=== PATIENT | female | born 1990 | race Two or more races ===

== ENCOUNTER 2016-03-27 22:47 | Emergency (ER) | payer OTHER ==
[~2016-03-27] VITALS: Ht 149.9 cm; Wt 60.8 kg
[2016-03-27] MEDS ORDERED: NKM (23:05)
[2016-03-27 23:32] VITALS: BP 100/66
[2016-03-27] MEDS ORDERED: Ketorolac 30mg Inj IV ONE (23:45)
[2016-03-27] MEDS ORDERED: Acetaminophen 500mg (ES) tab ORAL ONE (23:45)
[2016-03-27 23:56] LABS: APPEARANCE,URINE CLEAR; KETONES,URINE 2+ (NEGATIVE); LEUKOCYTE ESTERASE ,URINE 3+ (NEGATIVE); NITRITE,URINE NEGATIVE (NEGATIVE); PH,URINE 6 (4.5-8.0); PROTEIN,URINE NEGATIVE (NEGATIVE); UROBILINOGEN,URINE NORMAL MG/DL (0.0-1.0)
[2016-03-28 00:05] LABS: MEAN CORPUSCULAR HEMOGLOBIN 31.8 PG (27.0-31.0); MEAN CORPUSCULAR HGB CONC 34.1 G/DL (32.0-36.0); MEAN CORPUSCULAR VOLUME 93 FL (80-99); MEAN PLATELET VOLUME 6.3 FL (6.5-10.1); PLATELET COUNT 250 K/UL (150-450); RED BLOOD COUNT 4.06 M/UL (4.20-5.40); RED CELL DISTRIBUTION WIDTH 11.4 % (11.6-14.8); WHITE BLOOD COUNT 7.4 K/UL (4.8-10.8)
[2016-03-28 00:18] LABS: ANION GAP 19 (5-15); CALCIUM 8.6 mg/dL (8.6-10.2); CARBON DIOXIDE 22 mEQ/L (20-30); CHLORIDE 95 mEQ/L (98-107); CREATININE 0.8 mg/dL (0.5-0.9); GLOMERULAR FILTRATION RATE > 60 mL/min (>60); HEMOLYSIS 16; POTASSIUM 3.7 mEQ/L (3.4-4.9); SODIUM 136 mEQ/L (135-145)
[2016-03-28 00:27] LABS: BACTERIA,URINE FEW /HPF; SQUAMOUS EPITHELIAL CELL,UR MANY /LPF (NONE/OCC)
[2016-03-28 00:42] VITALS: BP 98/50
[2016-03-28] MEDS ORDERED: cefTRIAXone 1 GM in NS 55 ML IVPB ONE (01:00)
[2016-03-28] MEDS ORDERED: DOXYCYCLINE MO100 MG ORAL (01:24)
[2016-03-28] MEDS ORDERED: IBUPROFEN600 MG ORAL (01:24)
[2016-03-28] MEDS ORDERED: TAMIFLU75 MG ORAL (01:24)
--- NOTE | 2016-03-28 01:25 | Emergency Room Report ---
History of Present Illness General Chief Complaint: Fever Source: Patient Present Illness HPI Is a 26-year-old female with no past medical history. She presents with chief complaint of fever chills and body pain. Onset for last 36 hours. She is concerned because in the last month she has multiple infection. She would get better and another one occurred a week later. for this episode, she complaining of cough and congestion. Also complaining of abdominal cramps with vomiting and diarrhea. Her sister is also sick with the same thing. Allergies: Coded Allergies: No Known Allergies (Unverified , 03/27/16) Patient History Past Medical History: see triage record, old chart reviewed Past Surgical History: none Social History: Denies: smoking Last Menstrual Period: feb Now: No Immunizations: other Reviewed Nursing Documentation: PMH: Agreed, PSxH: Agreed Nursing Documentation-PMH Past Medical History: No Stated History Review of Systems Constitutional: Reports: fever, malaise Eye: Denies: blurred vision, eye pain ENT: Denies: ear pain, nose congestion, throat swelling Respiratory: Reports: cough, Denies: shortness of breath Cardiovascular: Denies: chest pain, palpitations Gastrointestinal: Reports: abdominal pain, diarrhea, nausea, vomiting Musculoskeletal: Denies: back pain, joint pain Skin: Denies: rash Neurological: Denies: headache, numbness Endocrine: Denies: increased thirst, increased urine Hematologic/Lymphatic: Denies: easy bruising All Other Systems: negative except mentioned in HPI Physical Exam Vital Signs Date Time Temp Pulse Resp B/P Pulse Ox O2 Delivery O2 Flow Rate FiO2 03/27/16 22:58 102.7 137 22 100/66 96 Room Air vitals with fever Sp02 EP Interpretation: reviewed, normal General Appearance: well appearing, no apparent distress, alert, other - ill appearing Head: normocephalic, atraumatic Eyes: bilateral eye EOMI, bilateral eye PERRL ENT: hearing grossly normal, normal pharynx Neck: full range of motion, supple, no meningismus Respiratory: chest non-tender, lungs clear, normal breath sounds Cardiovascular #1: regular rate, rhythm, no murmur Gastrointestinal: normal bowel sounds, non tender, no mass, no organomegaly, no bruit, non-distended Musculoskeletal: back normal, gait/station normal, normal range of motion Psychiatric: mood/affect normal Skin: warm/dry Medical Decision Making Diagnostic Impression: Primary Impression: Influenza-like illness Additional Impression: UTI (urinary tract infection) Qualified Codes: N30.00 - Acute cystitis without hematuria ER Course Patient with influenza-like illness. May have a malunion tract infection. We' ll put her on Tamiflu even though this has been 36 hours. No evidence of any sepsis, pneumonia, meningitis or other serious bacterial infection. Last Vital Signs Date Time Temp Pulse Resp B/P Pulse Ox O2 Delivery O2 Flow Rate FiO2 03/28/16 00:42 101.5 115 22 98/50 96 Room Air Status: improved Disposition: HOME, SELF-CARE Condition: Stable Scripts Doxycycline Monohydrate* (DOXYCYCLINE MONOHYDRATE*) 100 Mg Capsule 100 MG ORAL Q12H, #14 CAP 0 Refills Prov: ABIMBOLA HARRELL M.D. 03/28/16 Ibuprofen* (MOTRIN*) 600 Mg Tablet 600 MG ORAL THREE TIMES A DAY, #30 TAB 0 Refills Prov: ABIMBOLA HARRELL M.D. 03/28/16 Oseltamivir Phosphate (Tamiflu) 75 Mg Capsule 75 MG ORAL TWICE A DAY, #10 CAP Prov: ABIMBOLA HARRELL M.D. 03/28/16 Referrals: [facility] (PCP) Additional Instructions: Follow up with your doctor in 7 days. Return if worse. ABIMBOLA HARRELL M.D. Mar 28, 2016 01:25
[2016-03-28 01:35] VITALS: BP 92/51
[2016-03-28 01:39] VITALS: BP 92/51
[2016-03-28 07:48] LABS: BAND NEUTROPHILS % (MANUAL) 3 % (0-8); BASOPHILS % (MANUAL) 0 % (0-2); EOSINOPHILS % (MANUAL) 0 % (0-3); LYMPHOCYTES % (MANUAL) 2 % (20-45); NEUTROPHILS % (MANUAL) 88 % (45-75); PLATELET ESTIMATE ADEQUATE; PLATELET MORPHOLOGY NORMAL; TOTAL CELLS COUNTED 100
== END 2016-03-28 01:41 | disposition home or self-care (01) ==
LOC: EMR 23:13
DX: J11.1 Influenza due to unidentified influenza virus with other respiratory manifestations (principal); N30.00 Acute cystitis without hematuria; R10.9 Unspecified abdominal pain; R19.7 Diarrhea, unspecified; R11.2 Nausea with vomiting, unspecified
CPT/HCPCS: 36415; 80048; 81001; 81025; 85007; 85025; 96361; 96374; 96375; 99284; J0696; J1885

== ENCOUNTER 2016-05-10 20:30 | Emergency (ER) | payer OTHER ==
[~2016-05-10] VITALS: Ht 149.9 cm; Wt 61.7 kg
[~2016-05-10 20:30] MED LIST: DOXYCYCLINE MO100 MG ORAL; IBUPROFEN600 MG ORAL; NKM; TAMIFLU75 MG ORAL
[2016-05-10] MEDS ORDERED: ACYCLOVIR800 MG ORAL (21:23)
[2016-05-10] MEDS ORDERED: ACETAMINOPHEN-1 EAC1 ORAL (21:25)
[2016-05-10 21:30] VITALS: BP 121/80
[2016-05-10 21:35] VITALS: BP 121/80
--- NOTE | 2016-05-11 04:28 | Emergency Room Report ---
History of Present Illness General Chief Complaint: Skin Rash/Abscess Source: Patient Present Illness HPI 26-year-old female presents ED for evaluation. States since yesterday morning she is experiencing swollen lips. Denies any known food or drug allergies. Notes pain. Sharp. 8/10. Nonradiating. No other aggravating relieving factors. Denies fevers or chills. Denies sick contacts or recent travel. Denies any other associated symptoms Allergies: Coded Allergies: No Known Allergies (Unverified , 03/27/16) Patient History Past Medical History: none Past Surgical History: none Pertinent Family History: none Social History: Denies: alcohol use, drug use, smoking Last Menstrual Period: 04/12/16 Now: No Immunizations: UTD Reviewed Nursing Documentation: PMH: Agreed, PSxH: Agreed Nursing Documentation-PMH Past Medical History: No Stated History Review of Systems All Other Systems: negative except mentioned in HPI Physical Exam Vital Signs Date Time Temp Pulse Resp B/P Pulse Ox O2 Delivery O2 Flow Rate FiO2 05/10/16 21:25 98.8 90 18 121/80 98 Room Air Sp02 EP Interpretation: reviewed, normal General Appearance: no apparent distress, alert, GCS 15, non-toxic Head: normocephalic Eyes: bilateral eye PERRL, bilateral eye normal inspection ENT: normal ENT inspection, other - swollen lips. multiple vesicular lesions noted Neck: normal inspection Respiratory: chest non-tender, lungs clear, normal breath sounds, speaking full sentences Cardiovascular #1: regular rate, rhythm, no edema Gastrointestinal: normal inspection Rectal: deferred Genitourinary: no CVA tenderness Musculoskeletal: normal inspection Neurologic: alert, oriented x3, responsive, motor strength/tone normal, sensory intact, speech normal Psychiatric: normal inspection Skin: normal inspection Lymphatic: normal inspection Medical Decision Making Diagnostic Impression: Primary Impression: Oral herpes ER Course Hospital Course 26-year-old female presents to ED with pain and swelling to the lips Differential diagnoses include: Cellulitis, dermatitis, insect bite, abscess Clinical course Patient placed on stretcher. After initial history, physical exam reveals a young female in no acute distress. On exam there were multiple vesicular lesions noted to the lips. With secondary swelling. No discharge. No signs of airway compromise. Likely viral infection-consider herpes Diagnosis - oral herpes stable and discharged to home with prescription for acyclovir. Instructed to followup with PMD. Instructed return to ED if symptoms recur or worsen Last Vital Signs Date Time Temp Pulse Resp B/P Pulse Ox O2 Delivery O2 Flow Rate FiO2 05/10/16 21:35 98.8 90 18 121/80 98 Room Air Status: improved Disposition: HOME, SELF-CARE Condition: Stable Scripts Acetaminophen With Codeine (T#3) (TYLENOL #3 TAB*) Y Tab 1 TAB ORAL Q8H Y for For Pain, #20 TAB Prov: KEYSHA DOMINGUEZ M.D. 05/10/16 Acyclovir* (ZOVIRAX*) 800 Mg Tablet 800 MG ORAL FIVE TIMES A DAY for 7 Days, TAB Prov: KEYSHA DOMINGUEZ M.D. 05/10/16 Referrals: [facility] (PCP) Departure Forms: Return to Work Return to Work Date: May 13, 2016 Work Restrictions: None Patient Instructions: Herpes Simplex Test KEYSHA DOMINGUEZ M.D. May 11, 2016 04:28
== END 2016-05-10 21:35 | disposition home or self-care (01) ==
LOC: EMR 20:58
DX: B00.9 Herpesviral infection, unspecified (principal)
CPT/HCPCS: 99284